=== PATIENT | female | born 1955 | race Caucasian/White ===

== ENCOUNTER → 2016-12-27 16:28 | Outpatient (CLI) | payer BC ==
[2010-12-02 08:03] VITALS: BMI 19.4
== END | disposition home or self-care (01) ==
LOC: D.MAMMO 11:30
DX: Z12.31 Encounter for screening mammogram for malignant neoplasm of breast (principal)

== ENCOUNTER → 2017-04-29 11:10 | Outpatient (CLI) | payer BC ==
[2010-12-02 08:03] VITALS: BMI 19.4
[2017-04-29 12:13] LABS: BASOPHILS 1.2 % (0-2); EOSINOPHILS 10.6 % (0-7); HEMATOCRIT 42.3 % (36.0-48.0); HEMOGLOBIN 14.2 g/dL (12-16); LYMPHOCYTES 32.7 % (15-50); MCH 30.7 pg (26.0-34.0); MCHC 33.6 g/dL (31.0-37.0); MCV 91.6 fL (80.0-100.0); MEAN PLATELET VOLUME 9.4 fL (7.4-10.4); MONOCYTES 7.6 % (2-11); NEUTROPHILS 47.9 % (40-80); PLATELET COUNT 259 10x3/uL (130-400); RBC 4.62 10x6/uL (4.00-5.40); RDW 12.5 % (11.5-14.5); WBC 6.1 10x3/uL (4.8-10.8)
[2017-04-29 12:29] LABS: ALBUMIN 3.8 g/dL (3.4-5.0); ANION GAP 9.5 mmol/L (8-16); BILIRUBIN - TOTAL 0.47 mg/dL (0.2-1.3); CALCIUM 9.7 mg/dL (8.5-10.1); CARBON DIOXIDE 31.2 mmol/L (21.0-32.0); POTASSIUM - SERUM 4.7 mmol/L (3.5-5.1)
[2017-04-29 12:35] LABS: C-REACTIVE PROTEIN 0.2 mg/dL (0.0-0.9)
[2017-04-29 13:34] LABS: ERYTHROCYTE SEDIMENTATION RATE 4 mm/hr (0-30)
== END | disposition home or self-care (01) ==
LOC: D.LAB 11:10
PROVIDERS: Internal Medicine Gastroenterology
DX: K51.30 Ulcerative (chronic) rectosigmoiditis without complications (principal); R19.4 Change in bowel habit; K59.00 Constipation, unspecified

== ENCOUNTER 2017-10-03 18:24 | Emergency (ER) | payer BC ==
[2010-12-02 08:03] VITALS: BMI 19.4
== END 2017-10-03 21:07 | disposition home or self-care (01) ==
LOC: D.ER 18:24
DX: G43.909 Migraine, unspecified, not intractable, without status migrainosus (principal)

== ENCOUNTER → 2017-12-30 10:00 | Outpatient (CLI) | payer MEDICARE ==
[2010-12-02 08:03] VITALS: BMI 19.4
== END ==
LOC: D.MAMMO 10:00
DX: Z12.31 Encounter for screening mammogram for malignant neoplasm of breast (principal)